=== PATIENT | female | born 1940 | race Caucasian/White ===

== ENCOUNTER 2017-02-26 13:50 | Outpatient (CLI) | payer MEDICARE, OTHER | END 2017-02-26 13:51 | disposition home or self-care (01) | DX: G47.33 Obstructive sleep apnea (adult) (pediatric) (principal); M79.662 Pain in left lower leg; R22.42 Localized swelling, mass and lump, left lower limb | CPT/HCPCS: 99215; G0463 ==

== ENCOUNTER 2018-07-09 16:06 | Outpatient (CLI) | payer MEDICARE, OTHER ==
[2018-07-09] MEDS ORDERED: ALBUTEROL NEB 2.5 MG/3 ML INH ONE (17:00)
== END 2018-07-09 16:07 | disposition home or self-care (01) ==
LOC: RT 16:06
PROVIDERS: ATTEND Internal Medicine
DX: R06.00 Dyspnea, unspecified (principal); Z86.711 Personal history of pulmonary embolism
CPT/HCPCS: 94060

== ENCOUNTER 2021-01-08 09:52 | Outpatient (CLI) | payer MEDICARE, OTHER ==
--- NOTE | 2021-01-08 10:51 | SLEEP CARE CONSULTATION ---
Information from patient questionnaire entered by Brittaney Amaya. I have reviewed and concur with the information entered by Brittaney Amaya. This document represents the service I personally performed and the decisions made by me, Ramonita Lantigua ARNP. History of Present Illness Service Date and Time: 01/08/2021 0952 Reason for Visit: New patient, Previously diagnosed sleep apnea (moderate - AHI - 18.9 in 2016), sleep apnea on CPAP therapy ([facility]), Re-establish care (last seen 02/2017) Chief Complaint: reports: Observed pauses in breathing, Frequent awakenings at night Date of Onset: 7 years Usual bedtime: 10pm Time it takes to fall asleep: 30 minutes Snores at night: No (did before CPAP) Observed to quit breathing while asleep: Yes Number of times waking at night: 2-3 Reasons for waking at night: reports: Gasping for air, Bathroom, Other (mask off because nose is plugged up) Toss, Turn, or Twitch while sleeping: Yes Recalls having dreams: Yes Usually gets out of bed at: 5:30 - 6 am Feels refreshed in the morning: Yes Morning headache: No Sleepy or fatigued during the day: Yes Ever fallen asleep while driving: No Takes day naps: Yes Dreams during day naps: Yes Prior sleep studies: Yes Year and Where: 2015 - [facility] Type of Sleep Study: Polysomnography Additional HPI information: DARIN FORBES was diagnosed to have moderate, AHI 18.9, obstructive sleep apnea- hypopnea syndrome and comes in today to re-establish care for CPAP therapy. - Parasomnia Symptoms Ever been unable to move upon waking from sleep: No Walks in sleep: No Talks in sleep: No Ever acted out dreams in sleep: No Ever felt weak in the knees when startled or emotional: No Bothered by creepy, crawly, restless sensations in legs: Yes Problems with memory or concentration: No CPAP Compliance Data - Data Reviewed with Patient Average duration of nightly device use: 7 hours 10 minutes Compliance rate %: 100 Current pressure setting (cmH2O): 6 Average residual AHI: 3.4 Central apnea: 0.2 Obstructive apnea: 1.4 Compliance data discussion: Patient is a current CPAP user. She does not have a back up mask. She uses a nasal cushion mask [employer]. She uses [email or web address] for her supplies. She is not happy with service since she cannot see them and is unable to get supplies for her oxygen tubing. She uses on average 2 L/O2 with her CPAP at night. She would like to get a portable oxygen machine for when she travels and when she has no power. Subjective Missed days of use due to: reports: other (power outages) Patient concerns: reports: nasal congestion (using nasal sprays as needed; having allergies ), other (taking mask off due to nasal congestion, but puts back on when found). denies: aerophagia, mask discomfort, air blowing in eyes, mask leak noise, condensation in mask/hose, dry mouth, nose, throat, epistaxis Observed to snore while using device: No Current pressure setting perceived as: comfortable On therapy, patient: reports: sleeping better, awakening more refreshed, being more awake and alert during the day, more rested overall. denies: drowsiness while driving Initial [place] Sleepiness Scale score: 3 (in 2015) Current [place] Sleepiness Scale score: 3 (in 2020) Past Medical History Past Medical History: reports: Hypertension, Arthritis, Coronary Heart Disease, GERD, Other (heart valves, blood clots; both knees replaced and 5 back surgeries; intestinal surgery too) Social History The patient's occupation is a Retired. Patient is and lives in [place]. Have you smoked in the past 12 months: No Alcohol use: No Caffeine use: Yes Caffeine amount and frequency: 1 cup coffee daily Family History Family history of sleep disordered breathing: No (daughter snores) Allergies and Home Medications Drug allergies reviewed: Yes (adhesive tape) Home medication list reviewed: Yes Allergy and home medication list: Eliquis 5 mg BID Levothyroxine Atenolol 25 mg BID Losartan Vitamin D Multivitamin Review of Systems Weight loss over past 5 years: 20 Cardiovascular: reports: high blood pressure, chest pain, irregular heart rate or pulse, leg or foot swelling Respiratory: reports: shortness of breath, sputum production Gastrointestinal: reports: difficulty swallowing, nausea, vomitting, diarrhea, abdominal pain Urinary: reports: frequency Psychiatric: reports: Attention Deficit Hyperactivity Ear/Nose/Throat: reports: sinus problems, wisdom teeth removed Endocrine: reports: thyroid disease, too hot or cold (cold) Musculoskeletal: reports: joint pain, joint swelling Immunologic: reports: allergies to food or environment (environment) Physical Exam Heart Rate: 50 O2 Saturation: 97 Height: 5 ft 6 in Weight: 222 lb Body Mass Index: 35.8 BMI Classification: Obese Impression and Plan 1. Obstructive Sleep Apnea-Hypopnea Syndrome, moderate, with excellent treatment compliance and good apnea control. On CPAP therapy, the patient has better sleep quality and is more rested overall. She uses 2L/oxygen nocturnal oxygen with her CPAP machine. She cannot sleep without her CPAP machine with the oxygen. She would like to have a portable oxygen machine so she may travel to see family and for times of power outages at home. She has been having difficulty getting supplies for her oxygen use. She has to call repeatedly to get oxygen tubing replaced and they have never sent her a replacement of her oxygen adaptor for her CPAP machine. I will write a prescription for the supplies and a portable oxygen concentrator for her needs. Patient's apnea severity and rationale for treatment to reduce apnea, improve sleep quality and reduce cardiovascular and cerebrovascular events was reviewed. I also reviewed the benefit of consistent device use of CPAP for hypertension, cardiac disease and gastric reflux. * Continue auto CPAP pressure at 6 cmH2O * Rx for portable oxygen concentrator and supplies * Notify me if snoring with mask or feeling that the pressure is too much or too little * Attempt to lose weight * Call this office if any problems using CPAP * Return for follow up in 1 year, or sooner if concerns arise Counseling Topics: Spare mask, Weight loss health impact Visit Type: In Office Time Spent with Patient (minutes): 40 Provider Statement: I spent 100% of the Face to Face Visit with the patient with greater than 50% spent counseling the patient and coordination of care.
== END 2021-01-08 09:53 | disposition home or self-care (01) ==
LOC: SC 09:52
PROVIDERS: ATTEND Nurse Practitioner Family
DX: G47.33 Obstructive sleep apnea (adult) (pediatric) (principal); E66.9 Obesity, unspecified; Z68.35 Body mass index [BMI] 35.0-35.9, adult
CPT/HCPCS: 99203; G0463; 99212

== ENCOUNTER 2021-01-16 17:39 | Emergency (ER) | payer MEDICARE, OTHER ==
--- NOTE | 2021-01-16 18:22 | ED Physician Documentation ---
History of Present Illness - Stated complaint Stated Complaint: RT LEG PX/SWELLING - Chief complaint Chief Complaint: Ext Problem - Additonal information Additional information: A pleasant 80-year-old female who presents to the emergency department for increased pain and swelling on her left leg raising concern for a blood clot. 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 She reports that she has had 9 deep vein thrombosis in the left leg and 1 in the right. It is thought that these DVTs are related to the May-Thurner syndrome for which she received also rec eived the stent. For 1 week she has had increased pain and swelling on the left medial calf. There is no erythema. This pain and swelling is adjacent to where she had a skin cancer lesion removed a number of years ago. She denies CP and SOA. Patient has been on Eliquis for about 1 year. Previous to that she was on Xarelto but the Xarelto was stopped due to a major bleeding event/GI hemorrhage. She had been on Coumadin for a long period of time before the Xarelto but the decision was made to stop the Coumadin and begin novel anticoagulation as she had developed to new DVTs while on Coumadin Past medical history hypertension, atrial fibrillation, aortic and mitral valve regurg, recurrent DVT, May Thurner syndrome Meds Eliquis 5 mg twice daily, levothyroxine, atenolol, pantoprazole, losartan Review of Systems Constitutional: denies: Fever, Chills Eyes: reports: Reviewed and negative Nose: reports: Rhinorrhea / runny nose Throat: reports: Reviewed and negative Cardiac: denies: Chest pain / pressure, Palpitations Respiratory: denies: Dyspnea, Cough GI: denies: Abdominal Pain, Abdominal Swelling, Nausea, Vomiting : reports: Reviewed and negative Skin: reports: Lesions (hemosiderin staining left leg) Musculoskeletal: reports: Reviewed and negative Neurologic: reports: Reviewed and negative PD PAST MEDICAL HISTORY - Present Medications Home Medications: Ambulatory Orders Medication Instructions Recorded Confirmed Apixaban [Eliquis] 5 mg PO BID 01/16/21 01/16/21 Levothyroxine Sodium 137 mcg PO DAILY 01/16/21 01/16/21 Losartan Potassium 25 mg PO DAILY 01/16/21 01/16/21 Pantoprazole Sodium [Protonix] 40 mg PO BID 01/16/21 01/16/21 atenoloL [Tenormin] 25 mg PO BID 01/16/21 01/16/21 - Allergies Allergies/Adverse Reactions: Allergies Allergy/AdvReac Type Severity Reaction Status Date / Time adhesive tape Allergy Rash Verified 01/16/21 17:42 PD ED PE EXPANDED - General General: Alert, No acute distress, Well developed/nourished - Cardiac Cardiac: Regular Rate, Murmur Present, Radial strong equal, Pedal strong equal, Cap refill < 2 sec - Respiratory Respiratory: Clear to ausultation karishma. No: Distress, Labored - Abdomen Abdomen: Normal Bowel sounds. No: Tender to palpation - Derm Derm: Warm and dry, Other (hemosiderin staining left anterior calf) - Extremities Extremities: Other (Left greater than right lower extremity swelling. There is tenderness left medial calf just above the outline of hemosiderin staining. No erythema no ecchymosis however there is a large amount of varicosities present) - Neuro Neuro: Alert and Oriented X 3, CNII-XII intact - GCS Eye Opening: Spontaneous Motor: Obeys Commands Verbal: Oriented Total: 15 Results - Vitals Vitals: Vital Signs - 24 hr 01/16/21 01/16/21 17:47 19:29 Temperature 36.7 C 36.5 C Heart Rate 56 L 56 L Respiratory 18 16 Rate Blood Pressure 185/100 H 173/106 H O2 Saturation 100 95 Oxygen O2 Source Room air - EKG (time done) 1831 Rate: Rate (enter#) (53) Rhythm: NSR [place]: Normal Intervals: Prolonged CO QRS: LVH Ischemia: Normal ST segments Compare to prior EKG: Unchanged from prior EKG Computer interpretation: Agree with computer - Labs Labs: Laboratory Tests 01/16/21 01/16/21 18:27 18:27 WBC 6.0 RBC 4.66 Hgb 13.8 Hct 42.1 MCV 90.3 MCH 29.6 MCHC 32.8 RDW 14.0 Plt Count 222 MPV 11.5 H Neut # (Auto) 3.6 Lymph # (Auto) 1.8 [place] # (Auto) 0.4 Eos # (Auto) 0.2 Baso # (Auto) 0.0 Absolute Nucleated RBC 0.00 Nucleated RBC % 0.0 Sodium 136 Potassium 3.7 Chloride 98 L Carbon Dioxide 24 Anion Gap 14.0 H BUN 33 H Creatinine 0.8 Estimated GFR (MDRD) 69 L Glucose 144 H Calcium 10.8 H Total Bilirubin 1.1 H AST 22 ALT 20 Alkaline Phosphatase 57 Total Protein 7.6 Albumin 4.4 Globulin 3.2 Albumin/Globulin Ratio 1.4 Lipase 48 - Rads (name of study) US DVT left leg Radiology: Final report received (Significantly limited study. Nonocclusive thrombus identified with the mid to distal left femoral vein which given the appearance of moderate narrowing and somewhat eccentric positioning is more suggestive of chronic thrombus. Negative for DVT in the left common femoral and proximal femoral vein) PD MEDICAL DECISION MAKING - ED course Complexity details: reviewed old records, reviewed results, re-evaluated patient ED course: 80-year-old female presents the emergency department for evaluation of left leg swelling. She has a history of May Thurner syndrome and previously known 9 deep vein thrombosis in the left leg. She does have an IVC filter in place as well as IVC stenting secondary to may Thurner syndrome. She is currently anticoagulated on Eliquis and is compliant with that medication. She has previously been on Xarelto but had a major bleeding event as well as Coumadin for which she developed recurrent thrombus despite appropriate INR levels. Ultrasound today does reveal a nonocclusive thrombus within the mid distal left femoral vein. The appearance is suggestive of a more chronic thrombus. I discussed these findings with the patient. At this time given the presence of anticoagulation, and an IVC filter there is no indication to change her anticoagulation today. However the persistence of DVT despite anticoagulation does raise the question of whether she should be trialed on a different anticoagulant. I have printed a copy of the ultrasound results and encourage the patient to have this discussion with her primary care provider as well as her general purchasing agent. Urgent return precautions were discussed Departure - Departure Disposition: 01 Home, Self Care Clinical Impression: May-Thurner syndrome DVT (deep venous thrombosis) Qualifiers: DVT location: lower extremity Affected thrombotic vein of extremity: femoral Chronicity: chronic Laterality: left Qualified Code(s): I82.512 - Chronic embolism and thrombosis of left femoral vein Condition: Stable Record reviewed to determine appropriate education?: Yes Follow-Up: Vargas Alfaro MD [Primary Care Provider] - Comments: Kimi the ultrasound today does show a nonocclusive thrombus in your distal left femoral vein. The appearance of this suggest that it is likely a chronic thrombus. I want you to continue taking the Eliquis twice daily. However it is important that you discuss this chronic thrombus with both your primary care provider as well as your general purchasing agent to determine if changing your anticoagulation is appropriate. It does seem that in the past Coumadin was not effective at relieving all resolving the DVTs and you had a major bleeding event on Xarelto. The decision to change anticoagulation should be made very carefully in conjunction with your primary provider and general purchasing agent
[2021-01-16 18:34] LABS: BASOPHILS % (AUTO) 0.7 %; EOSINOPHILS # (AUTO) 0.2 10^3/uL (0.0-0.7); EOSINOPHILS % (AUTO) 3.2 %; HCT - HEMATOCRIT 42.1 % (37.0-47.0); HGB - HEMOGLOBIN 13.8 g/dL (12.0-16.0); LYMPHOCYTES # (AUTO) 1.8 10^3/uL (1.5-3.5); LYMPHOCYTES % (AUTO) 29.9 %; MEAN CORPUSCULAR HEMOGLOBIN 29.6 pg (27.0-31.0); MEAN CORPUSCULAR HGB CONC 32.8 g/dL (32.0-36.0); MEAN CORPUSCULAR VOLUME 90.3 fL (81.0-99.0); MEAN PLATELET VOLUME 11.5 fL (7.9-10.8); MONOCYTES # (AUTO) 0.4 10^3/uL (0.0-1.0); MONOCYTES % (AUTO) 6.8 %; NEUTROPHILS # (AUTO) 3.6 10^3/uL (1.5-6.6); NEUTROPHILS % (AUTO) 59.1 %; PLT - PLATELET COUNT 222 10^3/uL (130-450); RED BLOOD COUNT 4.66 10^6/uL (4.20-5.40)
[2021-01-16 18:52] LABS: ALBUMIN 4.4 g/dL (3.2-5.5); ALBUMIN/GLOBULIN RATIO 1.4 (1.0-2.2); BILIRUBIN,TOTAL 1.1 mg/dL (0.2-1.0); CALCIUM 10.8 mg/dL (8.5-10.3); CREATININE 0.8 mg/dL (0.4-1.0); POTASSIUM 3.7 mmol/L (3.5-5.0); TOTAL PROTEIN 7.6 g/dL (6.7-8.2)
--- NOTE | 2021-01-16 19:52 | Ultrasound Report ---
PROCEDURE: Duplex Ext Veins Left INDICATIONS: LT LEG SWELLING, EVAL FOR DVT TECHNIQUE: Real-time imaging, as well as color and pulse Doppler interrogation, were performed of the lower extr emity deep veins from the inguinal ligament to the popliteal fossa. COMPARISON: 11/06/2014. FINDINGS: There is no evidence for deep venous thrombosis involving the left common femoral vein to the level of the mid femoral vein. The mid to distal femoral vein as well as the popliteal vein were not well imaged secondary to patient's inability to breath-hold. There is limited compressibility of the mid to distal femoral vein and popliteal vein. Similar findings of the calf veins. There is a pos sible nonocclusive thrombus involving the left mid to distal femoral vein. This may be a new nonocclu sive thrombus versus chronic thrombus given decreased size of the femoral vein at this level and some what eccentric location. IMPRESSION: 1. Significantly limited study secondary to patient's inability for adequate breath-hold. 2. There is a nonocclusive thrombus identified within the mid to distal left femoral vein which given the appearance of moderately narrowing of the vein and somewhat eccentric positioning of the thrombu s is more suggestive of a chronic thrombus. 3. Negative for deep venous thrombosis of the left common femoral and proximal femoral vein. Reviewed by: Cullen Bruner MD on 01/16/2021 7:51 PM PDT Approved by: Cullen Bruner MD on 01/16/2021 7:51 PM PDT Station ID: [id number]
[2021-01-16 20:29] VITALS: BP 204/89
== END 2021-01-16 20:30 | disposition home or self-care (01) ==
LOC: ED 17:39
DX: I82.512 Chronic embolism and thrombosis of left femoral vein (principal); Z79.01 Long term (current) use of anticoagulants; I87.1 Compression of vein; I83.92 Asymptomatic varicose veins of left lower extremity; I10 Essential (primary) hypertension; I44.0 Atrioventricular block, first degree; I08.0 Rheumatic disorders of both mitral and aortic valves
CPT/HCPCS: 36415; 80053; 83690; 85025; 93005; 99284

== ENCOUNTER 2021-01-31 18:37 | Outpatient (CLI) | payer MEDICARE, OTHER ==
--- NOTE | 2021-02-01 09:47 | Ultrasound Report ---
PROCEDURE: Duplex Ext Veins Left INDICATIONS: SWELLING OF LT LOWER LIMB TECHNIQUE: Real-time imaging, as well as color and pulse Doppler interrogation, were performed of the lower extr emity deep veins from the inguinal ligament to the popliteal fossa. COMPARISON: None. FINDINGS: Chronic appearing nonocclusive thrombus in the left lower extremity extending from the dist al superficial femoral vein to the popliteal vein. No evidence of acute venous thrombosis in the xander ining left lower extremity. IMPRESSION: Chronic nonocclusive thrombus in the distal superficial femoral vein and popliteal vein. No acute or fully occlusive thrombus identified. Reviewed by: Glen Porras MD on 02/01/2021 9:45 AM PDT Approved by: Glen Porras MD on 02/01/2021 9:45 AM PDT Station ID: [id number]
== END 2021-01-31 18:38 | disposition home or self-care (01) ==
LOC: DI 18:37
PROVIDERS: ATTEND Nurse Practitioner Family
DX: R22.42 Localized swelling, mass and lump, left lower limb (principal); I82.812 Embolism and thrombosis of superficial veins of left lower extremity; I82.532 Chronic embolism and thrombosis of left popliteal vein

== ENCOUNTER 2022-07-04 14:40 | Outpatient (CLI) | payer MEDICARE, OTHER ==
[2022-07-04 19:57] LABS: CALCIUM 10.3 mg/dL (8.5-10.3); CREATININE 0.6 mg/dL (0.4-1.0); POTASSIUM 4.2 mmol/L (3.5-5.0)
== END 2022-07-04 14:41 | disposition home or self-care (01) ==
LOC: LAB.S 14:40
PROVIDERS: ATTEND Internal Medicine Interventional Cardiology
DX: I10 Essential (primary) hypertension (principal)
CPT/HCPCS: 36415; 80048

== ENCOUNTER 2022-07-14 13:30 | Outpatient (CLI) | payer MEDICARE, OTHER ==
[2022-07-14 20:29] LABS: ALBUMIN 4.6 g/dL (3.2-5.5); ALBUMIN/GLOBULIN RATIO 1.5 (1.0-2.2); BILIRUBIN,TOTAL 1.5 mg/dL (0.2-1.0); CALCIUM 10.3 mg/dL (8.5-10.3); CREATININE 0.8 mg/dL (0.4-1.0); TOTAL PROTEIN 7.6 g/dL (6.7-8.2)
== END 2022-07-14 13:31 | disposition home or self-care (01) ==
LOC: LAB.S 13:30
PROVIDERS: ATTEND Nurse Practitioner Family
DX: I48.91 Unspecified atrial fibrillation (principal); I35.0 Nonrheumatic aortic (valve) stenosis; I38 Endocarditis, valve unspecified; R06.09 Other forms of dyspnea
CPT/HCPCS: 36415; 80053; 83880

== ENCOUNTER 2022-07-25 14:44 | Outpatient (CLI) | payer MEDICARE, OTHER ==
[2022-07-25 20:12] LABS: CALCIUM 10.1 mg/dL (8.5-10.3); CREATININE 1.1 mg/dL (0.4-1.0); POTASSIUM 5.1 mmol/L (3.5-5.0)
== END 2022-07-25 14:45 | disposition home or self-care (01) ==
LOC: LAB.S 14:44
PROVIDERS: ATTEND Nurse Practitioner
DX: I11.0 Hypertensive heart disease with heart failure (principal); I50.30 Unspecified diastolic (congestive) heart failure; I48.91 Unspecified atrial fibrillation; I38 Endocarditis, valve unspecified; R06.09 Other forms of dyspnea
CPT/HCPCS: 36415; 80048; 83880

== ENCOUNTER 2022-09-21 17:11 | Emergency (ER) | payer MEDICARE, OTHER ==
[2022-09-21 17:40] LABS: BASOPHILS % (AUTO) 0.4 %; HCT - HEMATOCRIT 35.3 % (37.0-47.0); HGB - HEMOGLOBIN 11.4 g/dL (12.0-16.0); MEAN CORPUSCULAR HEMOGLOBIN 29.9 pg (27.0-31.0); MEAN CORPUSCULAR HGB CONC 32.3 g/dL (32.0-36.0); MEAN CORPUSCULAR VOLUME 92.7 fL (81.0-99.0); MEAN PLATELET VOLUME 10.8 fL (7.9-10.8); MONOCYTES # (AUTO) 0.7 10^3/uL (0.0-1.0); MONOCYTES % (AUTO) 9.8 %; NEUTROPHILS # (AUTO) 5.3 10^3/uL (1.5-6.6); NEUTROPHILS % (AUTO) 75.5 %; PLT - PLATELET COUNT 192 10^3/uL (130-450); RED BLOOD COUNT 3.81 10^6/uL (4.20-5.40); RED CELL DISTRIBUTION WIDTH 13.5 % (12.0-15.0)
[2022-09-21 17:53] LABS: ALBUMIN 3.9 g/dL (3.2-5.5); ALBUMIN/GLOBULIN RATIO 1.1 (1.0-2.2); CALCIUM 9.4 mg/dL (8.5-10.3); CREATININE 1.3 mg/dL (0.4-1.0); POTASSIUM 4.3 mmol/L (3.5-5.0); TOTAL PROTEIN 7.3 g/dL (6.7-8.2)
[2022-09-21 20:12] LABS: BILIRUBIN,URINE NEGATIVE (NEGATIVE); GLUCOSE, URINE (UA) NEGATIVE (NEGATIVE); KETONES,URINE (UA) NEGATIVE (NEGATIVE); LEUKOCYTE ESTERASE, URINE MODERATE (NEGATIVE); NITRITE,URINE NEGATIVE (NEGATIVE); OCCULT BLOOD,URINE SMALL (NEGATIVE); PROTEIN,URINE 30 mg/dL (NEGATIVE); UROBILINOGEN,URINE 0.2 (NORMAL) E.U./dL (NORMAL)
[2022-09-21 20:13] LABS: CLARITY,URINE SL. CLOUDY (CLEAR)
[2022-09-21 20:23] LABS: BACTERIA,URINE Moderate /HPF (None Seen); SQUAMOUS EPITHELIAL CELL,UR MOD Squamous (<= Few); WBC,URINE >25 /HPF (0-5)
--- NOTE | 2022-09-21 20:28 | ED Physician Documentation ---
History of Present Illness - Stated complaint Stated Complaint: CHILLS,VOMIT - Chief complaint Chief Complaint: General - History obtained from History obtained from: Patient - Additonal information Additional information: This is a 81-year-old female who presents with episodes of shaking and some weakness over the course last couple of days.She has also had some urinary frequency though had been on Lasix which she recently cut in half per her business change manager and then actually stopped it last couple days because she was peeing so much. She thought perhaps that shaking was related to a recent right hip surgery and she was given Mycelex years for that so she did take 1 last night which she did state helped, she is able to sleep through the night but then had some episodes of shaking tremors today. She has not had increase in right hip pain and is doing well with her recovery from hip surgery. She denies any new cough for chest pain, no difficulty breathing, no abdominal pain, no nausea vomiting or diarrhea, no pain when she pees. She Is on tramadol for right hip pain which has been well controlled, no other new medications. Review of Systems Ten Systems: 10 systems reviewed and negative (except as noted in HPI.) PD PAST MEDICAL HISTORY - Past Medical History Past Medical History: Yes Cardiovascular: Congestive heart failure, Pulmonary embolism Respiratory: None Endocrine/Autoimmune: None GI: None : None Psych: None Musculoskeletal: Osteoarthritis Derm: None - Past Surgical History Ortho: Hip replacement, Knee replacement, Spine surgery - Present Medications Home Medications: Ambulatory Orders Medication Instructions Recorded Confirmed Apixaban [Eliquis] 5 mg PO BID 01/16/21 02/01/21 Levothyroxine Sodium 137 mcg PO DAILY 01/16/21 02/01/21 Losartan Potassium 25 mg PO DAILY 01/16/21 02/01/21 Pantoprazole Sodium [Protonix] 40 mg PO BID 01/16/21 02/01/21 atenoloL [Tenormin] 25 mg PO BID 01/16/21 02/01/21 cephALEXin [Keflex] 500 mg PO BID 7 Days #14 cap 09/21/22 - Allergies Allergies/Adverse Reactions: Allergies Allergy/AdvReac Type Severity Reaction Status Date / Time adhesive tape Allergy Rash Verified 09/21/22 17:22 - Social History Smoking Status: Never smoker PD ED PE NORMAL - Vitals Vital signs reviewed: Yes - General General: Alert and oriented X 3, No acute distress, Well developed/nourished - HEENT HEENT: Atraumatic, Pharynx benign. No: Moist mucous membranes (Dry mucous membranes) - Neck Neck: Supple, no meningeal sign - Cardiac Cardiac: RRR, No murmur, No gallop, No rub, Strong equal pulses - Respiratory Respiratory: No respiratory distress, Clear bilaterally - Abdomen Abdomen: Normal bowel sounds, Soft, Non tender, Non distended, No organomegaly - Back Back: No CVA TTP - Derm Derm: Normal color, Warm and dry, No rash - Extremities Extremities: No deformity, No tenderness to palpate, Normal ROM s pain, No edema, No calf tenderness / cord - Neuro Neuro: Alert and oriented X 3 Eye Opening: Spontaneous Motor: Obeys Commands Verbal: Oriented GCS Score: 15 - Psych Psych: Normal mood, Normal affect Results - Vitals Vitals: Vital Signs - 24 hr 09/21/22 17:15 Temperature 37.7 C Heart Rate 83 Respiratory 18 Rate Blood Pressure 134/83 H O2 Saturation 99 Oxygen O2 Source Room air - Labs Labs: Laboratory Tests 09/21/22 09/21/22 09/21/22 17:33 17:33 19:58 WBC 7.0 RBC 3.81 L Hgb 11.4 L Hct 35.3 L MCV 92.7 MCH 29.9 MCHC 32.3 RDW 13.5 Plt Count 192 MPV 10.8 Neut # (Auto) 5.3 Lymph # (Auto) 1.0 L [place] # (Auto) 0.7 Eos # (Auto) 0.0 Baso # (Auto) 0.0 Absolute Nucleated RBC 0.00 Nucleated RBC % 0.0 Sodium 135 Potassium 4.3 Chloride 99 L Carbon Dioxide 26 Anion Gap 10.0 BUN 32 H Creatinine 1.3 H Estimated GFR (MDRD) 40 L Glucose 139 H Calcium 9.4 Total Bilirubin 1.0 AST 18 ALT 15 Alkaline Phosphatase 60 Total Protein 7.3 Albumin 3.9 Globulin 3.4 Albumin/Globulin Ratio 1.1 Lipase 59 H Urine Color YELLOW Urine Clarity SL. CLOUDY Urine pH 6.0 Ur Specific Winter 1.015 Urine Protein 30 H Urine Glucose (UA) NEGATIVE Urine Ketones NEGATIVE Urine Occult Blood SMALL H Urine Nitrite NEGATIVE Urine Bilirubin NEGATIVE Urine Urobilinogen 0.2 (NORMAL) Ur Leukocyte Esterase MODERATE H Urine RBC 11-25 H Urine WBC >25 H Ur Squamous Epith Cells MOD Squamous H Urine Bacteria Moderate H Ur Microscopic Review INDICATED Urine Culture Comments NOT INDICATED PD MEDICAL DECISION MAKING - ED course Complexity details: reviewed old records, reviewed results, re-evaluated patient, considered differential, d/w patient ED course: This is a 81-year-old female with a past medical history of congestive heart failure as well as recent right hip replacement who presented with shakiness and urinary frequency as well as nausea for several days. She is well-appearing on physical exam today Without acute findings. Her vital signs here are stable. We did obtain labs to rule out possible infection or dehydration and patient does appear to have a urinary tract infection as well as mild dehydration which is likely due to overdiuresis. I have requested that she stop her Lasix for now for the next couple of days until she follows up with her business change manager which point may consider resuming at a lower dose the patient's lower extremity swelling has completely resolved and she has no respiratory symptoms. She also has signs of urinary tract infection and she was given a dose of ceftriaxone here in the ER and will be discharged on 7 days of Keflex for this. She has a doctors appointment tomorrow as well as Thursday and should follow-up with those appointments to ensure ongoing improvement in her symptoms. If new or worsening symptoms, return to the ER. Departure - Departure Disposition: 01 Home, Self Care Clinical Impression: Mild dehydration Urinary tract infection Qualifiers: Urinary tract infection type: acute cystitis Hematuria presence: without hematuria Qualified Code(s): N30.00 - Acute cystitis without hematuria Condition: Good Instructions: ED Dehydration, ED UTI Cystitis Female Prescriptions: cephALEXin [Keflex] 500 mg PO BID 7 Days #14 cap Comments: You have signs of a urinary tract infection on your physical exam here as well as some mild dehydration. Please hold your diuretic medication at this time until you follow-up with your business change manager. You can consider resuming if you develop increased swelling in the legs. I have placed you on antibiotics for the urinary tract infection which you should take as prescribed and follow-up with your regular doctors as scheduled this week.
[2022-09-21] MEDS: ONDANSETRON 4 MG/2 ML VIAL IVP STA (20:30)
[2022-09-21] MEDS ORDERED: cefTRIAXone 1 GM VIAL ONE (20:48)
[2022-09-21] MEDS: SODIUM CHLORIDE 0.9% 500 ML IV STA (20:54)
[2022-09-21] MEDS: cefTRIAXone 1 GM in SODIUM CHLORIDE 0.9% MINIBAG 100 ML IV STA (20:54)
[2022-09-21 22:33] VITALS: BP 110/60
== END 2022-09-21 22:33 | disposition home or self-care (01) ==
LOC: ED 17:11
DX: N30.00 Acute cystitis without hematuria (principal); E86.0 Dehydration; I50.9 Heart failure, unspecified; Z96.641 Presence of right artificial hip joint
CPT/HCPCS: 36415; 80053; 81001; 81003; 83690; 85025; 87086; 96365; 96375; 99282

== ENCOUNTER 2022-12-03 13:21 | Outpatient (CLI) | payer MEDICARE, OTHER ==
[2022-12-03 19:57] LABS: CALCIUM 11.4 mg/dL (8.5-10.3); CREATININE 0.9 mg/dL (0.4-1.0); POTASSIUM 4.8 mmol/L (3.5-5.0)
== END 2022-12-03 13:22 | disposition home or self-care (01) ==
LOC: LAB.S 13:21
PROVIDERS: ATTEND Nurse Practitioner
DX: I11.0 Hypertensive heart disease with heart failure (principal); I50.30 Unspecified diastolic (congestive) heart failure; I48.91 Unspecified atrial fibrillation
CPT/HCPCS: 36415; 80048; 83880

== ENCOUNTER 2023-01-14 13:38 | Outpatient (CLI) | payer MEDICARE, OTHER ==
[2023-01-14 20:25] LABS: CALCIUM 10.1 mg/dL (8.5-10.3); POTASSIUM 4.2 mmol/L (3.5-5.0)
== END 2023-01-14 13:39 | disposition home or self-care (01) ==
LOC: LAB.S 13:38
PROVIDERS: ATTEND Nurse Practitioner
DX: I11.0 Hypertensive heart disease with heart failure (principal); I50.30 Unspecified diastolic (congestive) heart failure; I48.91 Unspecified atrial fibrillation; I35.0 Nonrheumatic aortic (valve) stenosis; R06.09 Other forms of dyspnea
CPT/HCPCS: 36415; 80048; 83880